=== PATIENT | female | born 1960 | race African-American/Black ===

== ENCOUNTER 2016-09-17 22:21 | Emergency (ER) | payer SELFPAY ==
[~2016-09-17] VITALS: Ht 172.7 cm; Wt 77.0 kg
[2016-09-17 23:04] LABS: BASOPHILS % 0.6 % (0.0-2.0); EOSINOPHILS % 1.2 % (0.0-5.0); HEMATOCRIT. 42.6 % (36.0-48.0); HEMOGLOBIN. 13.9 g/dL (12.0-16.0); LYMPHOCYTES % 23.8 % (20.0-50.0); MEAN CORPUSCULAR HEMOGLOBIN 29.7 pg (28.0-32.0); MEAN CORPUSCULAR HGB CONC 32.7 g/dL (31.0-37.0); MEAN CORPUSCULAR VOLUME 90.9 fL (81.0-99.0); MEAN PLATELET VOLUME 8.4 fl (7.4-10.4); MONOCYTES % 9.3 % (2.0-8.0); NEUTROPHILS % 65.1 % (40.0-76.0); PLATELET 166 x1000/uL (130-400); RED BLOOD CELL COUNT 4.69 mill/uL (4.2-5.4); RED CELL DISTRIBUTION WIDTH 14.4 % (11.6-14.6); WHITE BLOOD COUNT 5.6 x1000/uL (4.5-11.0)
[2016-09-17 23:10] LABS: PROTHROMBIN TIME 9.9 sec
[2016-09-17 23:21] LABS: ALANINE AMINOTRANSFERASE 71 IU/L (13-61); ALBUMIN 3.5 g/dL (3.4-5.0); ANION GAP 15; CALCIUM 9.3 mg/dL (8.5-10.1); CARBON DIOXIDE 22 mEq/L (21-32); CHLORIDE 114 mEq/L (98-107); ETHANOL BLOOD 146 mg/dL; INDEX HEMOLYSI 1 (1-3); INDEX ICTERIC 1 (1-4); INDEX LIPEMIC 1 (1-3); NT PRO B-TYPE NATRIURETIC PEP 162 pg/mL (5-125); TROPONIN I < 0.02 ng/mL (0.00-0.04); UREA NITROGEN BLOOD 21 mg/dL (7-21); eGFR > 60 mL/min (>60)
[2016-09-18 01:10] LABS: *AMPHETAMINES SCREEN URINE NEGATIVE (NEGATIVE); *BARBITURATES SCREEN URINE NEGATIVE (NEGATIVE); *BENZODIAZEPINES SCREEN URINE NEGATIVE (NEGATIVE); *COCAINE SCREEN URINE NEGATIVE (NEGATIVE); CANNABINOID URINE SCREEN NEGATIVE (NEGATIVE); ECSTASY MDMA SCREEN URINE NEGATIVE (NEGATIVE); METHADONE URINE SCREEN NEGATIVE (NEGATIVE); OPIATES URINE SCREEN NEGATIVE (NEGATIVE); PHENCYCLIDINE URINE SCREEN NEGATIVE (NEGATIVE)
[2016-09-18] MEDS: MAGNESIUM/ALUMINUM HYDROXIDE/SIMETHICONE 30ML UDC PO ONE (03:09)
[2016-09-18 03:36] VITALS: BP 148/96
== END 2016-09-18 04:00 | disposition home or self-care (01) ==
LOC: ER 22:21
DX: R07.89 Other chest pain (principal); Z88.8 Allergy status to other drugs, medicaments and biological substances
CPT/HCPCS: 36415; 71010; 80053; 80305; 83880; 84484; 85025; 85610; 93005; 99285; G0482

== ENCOUNTER 2017-03-27 21:20 | Emergency (ER) | payer MEDICAID, OTHER ==
[~2017-03-27] VITALS: Ht 162.6 cm; Wt 79.0 kg
[2017-03-27] MEDS ORDERED: CLONIDINE 0.2MG TABLET PO ONE (22:30)
[2017-03-27] MEDS ORDERED: NITROGLYCERIN 0.4MG TABLET SL SL PRN (22:30)
[2017-03-27 22:51] LABS: BASOPHILS % 0.6 % (0.0-2.0); EOSINOPHILS % 0.2 % (0.0-5.0); HEMOGLOBIN. 12.5 g/dL (12.0-16.0); LYMPHOCYTES % 11.6 % (20.0-50.0); MEAN CORPUSCULAR HEMOGLOBIN 29.9 pg (28.0-32.0); MEAN PLATELET VOLUME 8.2 fl (7.4-10.4); MONOCYTES % 9.3 % (2.0-8.0); NEUTROPHILS % 78.3 % (40.0-76.0); PLATELET 129 x1000/uL (130-400); RED BLOOD CELL COUNT 4.18 mill/uL (4.2-5.4); RED CELL DISTRIBUTION WIDTH 14.4 % (11.6-14.6)
[2017-03-27 22:59] LABS: INR 1.1; PARTIAL THROMBOPLASTIN TIME 23.1 sec (23.4-31.0)
[2017-03-27 23:00] LABS: CARBON DIOXIDE 28 mEq/L (21-32); CHLORIDE 106 mEq/L (98-107)
[2017-03-27 23:03] LABS: TROPONIN I 0.06 ng/mL (0.00-0.04)
[2017-03-27 23:07] LABS: D-DIMER 14.44 mg/L FEU (<0.50)
[2017-03-28] MEDS ORDERED: IOHEXOL-350 100 ML BOTTLE ONE (01:10)
[2017-03-28 02:51] VITALS: BP 140/99
== END 2017-03-28 03:23 | disposition short-term general hospital (02) ==
LOC: ER 21:20 → EDBEDREQTM 23:37 → EDBEDREQ 23:37 → CANBEDREQ 03-28 01:53 → ER 03-28 03:23
DX: I71.3 Abdominal aortic aneurysm, ruptured (principal); I71.02 Dissection of abdominal aorta; I31.2 Hemopericardium, not elsewhere classified; I10 Essential (primary) hypertension
CPT/HCPCS: 36415; 71010; 71275; 80048; 84484; 85025; 85379; 85610; 85730; 93005; 99291; Q9967; Z7610

== ENCOUNTER 2017-04-09 19:15 | Inpatient (IN) | payer OTHER ==
[~2017-04-09] VITALS: Ht 162.6 cm; Wt 81.8 kg
[2017-04-09] MEDS ORDERED: ASPIRIN 81MG TABLET PO ONE (20:30)
[2017-04-09 20:56] LABS: BASOPHILS % 0.5 % (0.0-2.0); EOSINOPHILS % 1.6 % (0.0-5.0); HEMATOCRIT. 30.3 % (36.0-48.0); HEMOGLOBIN. 9.6 g/dL (12.0-16.0); LYMPHOCYTES % 9.8 % (20.0-50.0); MEAN CORPUSCULAR HEMOGLOBIN 28.4 pg (28.0-32.0); MEAN CORPUSCULAR VOLUME 89.4 fL (81.0-99.0); MEAN PLATELET VOLUME 7.6 fl (7.4-10.4); MONOCYTES % 8.4 % (2.0-8.0); NEUTROPHILS % 79.7 % (40.0-76.0); PLATELET 200 x1000/uL (130-400); RED BLOOD CELL COUNT 3.39 mill/uL (4.2-5.4); RED CELL DISTRIBUTION WIDTH 15.3 % (11.6-14.6)
[2017-04-09 21:01] LABS: INR 1.1; PROTHROMBIN TIME 11.1 sec (9.4-11.6)
[2017-04-09 21:05] LABS: CARBON DIOXIDE 31 mEq/L (21-32); CHLORIDE 106 mEq/L (98-107); ETHANOL BLOOD < 10 mg/dL
[2017-04-09 21:13] LABS: TROPONIN I 0.26 ng/mL (0.00-0.04)
[2017-04-09 22:31] LABS: *AMPHETAMINES SCREEN URINE NEGATIVE (NEGATIVE); *BARBITURATES SCREEN URINE NEGATIVE (NEGATIVE); *BENZODIAZEPINES SCREEN URINE NEGATIVE (NEGATIVE); *COCAINE SCREEN URINE NEGATIVE (NEGATIVE); CANNABINOID URINE SCREEN NEGATIVE (NEGATIVE); METHADONE URINE SCREEN NEGATIVE (NEGATIVE); OPIATES URINE SCREEN NEGATIVE (NEGATIVE); PHENCYCLIDINE URINE SCREEN NEGATIVE (NEGATIVE)
[2017-04-09] MEDS ORDERED: IOHEXOL-350 100 ML BOTTLE ONE (22:37)
[2017-04-10] VITALS (8 sets, daily range): BP systolic 88–130; BP diastolic 52–99
[2017-04-10] MEDS ORDERED: LEVOFLOXACIN 750MG PREMIX 150 ML IV ONE
[2017-04-10] MEDS ORDERED: METO-539 PO (04:45)
[2017-04-10] MEDS ORDERED: THIA100T75 PO (04:45)
[2017-04-10] MEDS ORDERED: CHOL100044 PO (04:45)
[2017-04-10] MEDS ORDERED: IPRATROPIUM/ALBUTEROL 0.5-3(2.5)MG/3ML NEB INH PRN (04:45)
[2017-04-10] MEDS ORDERED: CLONIDINE 0.1MG TABLET PO PRN (04:45)
[2017-04-10] MEDS ORDERED: MORPHINE SULFATE 10 MG/ML CPJ IV PRN (04:45)
[2017-04-10] MEDS ORDERED: CYAN10009 PO (04:45)
[2017-04-10] MEDS ORDERED: ESCI20TA PO (04:45)
[2017-04-10] MEDS ORDERED: ONDANSETRON HCL 4MG/2ML VIAL IV PRN (04:45)
[2017-04-10] MEDS ORDERED: HYDROCODONE/ACETAMINOPHEN 10/325MG TABLET PO PRN (04:45)
[2017-04-10] MEDS ORDERED: ASPI-1159 PO (04:45)
[2017-04-10] MEDS ORDERED: MAGNESIUM/ALUMINUM HYDROXIDE/SIMETHICONE 30ML UDC PO PRN (04:45)
[2017-04-10] MEDS ORDERED: BETA10003 PO (04:45)
[2017-04-10] MEDS ORDERED: MULT-1146 PO (04:45)
[2017-04-10] MEDS ORDERED: LOSA25TA12 PO (04:45)
[2017-04-10] MEDS ORDERED: ACETAMINOPHEN 325MG TABLET PO PRN (04:45)
[2017-04-10] MEDS ORDERED: OXYC-579 PO (04:45)
[2017-04-10] MEDS ORDERED: DIPHENHYDRAMINE 50MG/ML VIAL IV PRN (04:45)
[2017-04-10] MEDS ORDERED: FOLI-43 PO (04:45)
[2017-04-10] MEDS: SODIUM CHLORIDE 0.9% INJ 3ML FLUSH IVF SCH ×2 (05:02→14:28)
[2017-04-10] MEDS ORDERED: METOPROLOL TARTRATE 25MG TABLET PO SCH (09:00)
== END 2017-04-10 18:45 | disposition home or self-care (01) | DRG 313 ==
LOC: ER 19:31 → 3WST 23:22 → EDBEDREQ 23:23 → EDBEDREQSVC 23:23 → EDBEDREQTM 23:23 → ENRESERV 04-10 01:59
PROVIDERS: ADMIT Internal Medicine; ATTEND Internal Medicine
DX: R07.89 Other chest pain (principal); I10 Essential (primary) hypertension; Z88.6 Allergy status to analgesic agent
CPT/HCPCS: 36415; 71010; 71260; 74177; 80053; 80305; 83605; 83690; 83880; 84484; 85025; 85610; 87040; 93005; 93970; 96365; 99285; G0482; J1956; J2270; J2405; Q9967

== ENCOUNTER 2021-11-13 10:37 | Emergency (ER) | payer OTHER ==
[~2021-11-13] VITALS: Ht 167.6 cm; Wt 86.0 kg
[~2021-11-13 10:37] MED LIST: ASPI-1497 PO; BETA10003 PO; CHOL100044 PO; CYAN-50 PO; ESCI20TA PO; FOLI-43 PO; LOSA25TA26 PO; METO-539 PO; MULT-1146 PO; OXYC-485 PO; THIA100T75 PO
[2021-11-13] MEDS ORDERED: IOHEXOL-350 100 ML BOTTLE ONE (13:17)
[2021-11-13 14:55] LABS: BASOPHILS % 0.7 % (0.0-2.0); EOSINOPHILS % 0.4 % (0.0-5.0); HEMOGLOBIN. 13.4 g/dL (12.0-16.0); LYMPHOCYTES % 18.8 % (20.0-50.0); MEAN CORPUSCULAR HEMOGLOBIN 28.8 pg (28.0-32.0); MEAN CORPUSCULAR VOLUME 88.2 fL (81.0-99.0); MEAN PLATELET VOLUME 8.4 fl (7.4-10.4); MONOCYTES % 9.7 % (2.0-8.0); NEUTROPHILS % 70.4 % (40.0-76.0); PLATELET 194 x1000/uL (130-400); RED BLOOD CELL COUNT 4.65 mill/uL (4.2-5.4); RED CELL DISTRIBUTION WIDTH 15.5 % (11.6-14.6)
[2021-11-13 15:01] LABS: CHLORIDE 105 mEq/L (98-107)
[2021-11-13 15:03] LABS: PARTIAL THROMBOPLASTIN TIME 28.1 sec (23.4-31.0); PROTHROMBIN TIME 10.5 sec (9.6-11.0)
[2021-11-13] MEDS ORDERED: ASPIRIN 81MG TABLET PO ONE (16:30)
[2021-11-13 22:54] VITALS: BP 140/108
== END 2021-11-13 23:40 | disposition short-term general hospital (02) ==
LOC: ER 10:37
DX: I63.22 Cerebral infarction due to unspecified occlusion or stenosis of basilar artery (principal); I72.3 Aneurysm of iliac artery; R53.1 Weakness; R47.01 Aphasia; R47.1 Dysarthria and anarthria; G51.0 Bell's palsy; R07.2 Precordial pain; I10 Essential (primary) hypertension; K80.80 Other cholelithiasis without obstruction; D25.9 Leiomyoma of uterus, unspecified; K76.89 Other specified diseases of liver; I69.351 Hemiplegia and hemiparesis following cerebral infarction affecting right dominant side; E11.9 Type 2 diabetes mellitus without complications; I25.2 Old myocardial infarction; Z88.8 Allergy status to other drugs, medicaments and biological substances; Z98.890 Other specified postprocedural states; Z79.82 Long term (current) use of aspirin; Z79.899 Other long term (current) drug therapy
CPT/HCPCS: 36415; 70450; 70496; 70498; 71275; 74174; 80053; 83605; 83880; 84484; 85025; 85610; 85730; 93005; 99291; Q9967; Z7610

== ENCOUNTER 2021-11-16 11:01 | Emergency (ER) | payer OTHER ==
[~2021-11-16] VITALS: Ht 170.2 cm; Wt 85.1 kg
[2021-11-16 12:10] LABS: BASOPHILS % 0.3 % (0.0-2.0); EOSINOPHILS % 0.2 % (0.0-5.0); HEMATOCRIT. 42.4 % (36.0-48.0); HEMOGLOBIN. 14.1 g/dL (12.0-16.0); LYMPHOCYTES % 11.7 % (20.0-50.0); MEAN CORPUSCULAR HEMOGLOBIN 29.3 pg (28.0-32.0); MEAN CORPUSCULAR VOLUME 88.4 fL (81.0-99.0); MONOCYTES % 9.2 % (2.0-8.0); NEUTROPHILS % 78.6 % (40.0-76.0); PLATELET 210 x1000/uL (130-400); RED CELL DISTRIBUTION WIDTH 15.4 % (11.6-14.6)
[2021-11-16 12:21] LABS: CHLORIDE 101 mEq/L (98-107)
[2021-11-16 12:30] LABS: ETHANOL BLOOD < 10 mg/dL
[2021-11-16] MEDS ORDERED: ASPIRIN 325MG EC TABLET PO ONE (12:30)
[2021-11-16 13:01] LABS: CLARITY URINE CLEAR (CLEAR); COLOR URINE YELLOW (YELLOW); KETONES URINE NEGATIVE (NEGATIVE); LEUKOCYTE ESTERASE URINE NEGATIVE (NEGATIVE); NITRITE URINE NEGATIVE (NEGATIVE); OCCULT BLOOD URINE NEGATIVE (NEGATIVE); PH URINE 6.5 (4.5-8.0); PROTEIN URINE NEGATIVE (NEGATIVE); UROBILINOGEN URINE 0.2 E.U./dL (0.2-1.0)
[2021-11-16] MEDS ORDERED: IOHEXOL-350 100 ML BOTTLE ONE (13:12)
[2021-11-16 13:16] LABS: *AMPHETAMINES SCREEN URINE NEGATIVE (NEGATIVE); *BARBITURATES SCREEN URINE NEGATIVE (NEGATIVE); *BENZODIAZEPINES SCREEN URINE NEGATIVE (NEGATIVE); *COCAINE SCREEN URINE NEGATIVE (NEGATIVE); CANNABINOID URINE SCREEN NEGATIVE (NEGATIVE); METHADONE URINE SCREEN NEGATIVE (NEGATIVE); OPIATES URINE SCREEN NEGATIVE (NEGATIVE); PHENCYCLIDINE URINE SCREEN NEGATIVE (NEGATIVE)
[2021-11-16 20:00] VITALS: BP 118/95
== END 2021-11-16 20:21 | disposition short-term general hospital (02) ==
LOC: ER 11:01 → EDBEDREQTM 11:13 → EDBEDREQ 11:13 → EDBEDREQSVC 12:27 → EDBEDREQTM 12:27 → EDBEDREQ 12:27 → ER 20:21 → CMPBEDREQ 11-17 01:40
DX: U07.1 COVID-19 (principal); I63.9 Cerebral infarction, unspecified; I10 Essential (primary) hypertension; E11.9 Type 2 diabetes mellitus without complications; Z88.5 Allergy status to narcotic agent; Z88.8 Allergy status to other drugs, medicaments and biological substances; Z79.899 Other long term (current) drug therapy; Z86.73 Personal history of transient ischemic attack (TIA), and cerebral infarction without residual deficits; Z98.890 Other specified postprocedural states
CPT/HCPCS: 36415; 70450; 70496; 70498; 71045; 80053; 80305; 80320; 81003; 82962; 85025; 87426; 93005; 99291; C9803; Q9967; G0480

== ENCOUNTER 2022-03-17 08:05 | Emergency (ER) | payer OTHER ==
[~2022-03-17] VITALS: Ht 172.7 cm; Wt 83.4 kg
[2022-03-17 08:28] LABS: BASOPHILS % 0.3 % (0.0-2.0); EOSINOPHILS % 4.3 % (0.0-5.0); HEMATOCRIT. 39.8 % (36.0-48.0); HEMOGLOBIN. 12.7 g/dL (12.0-16.0); LYMPHOCYTES % 31.5 % (20.0-50.0); MEAN CORPUSCULAR HEMOGLOBIN 26.9 pg (28.0-32.0); MEAN CORPUSCULAR VOLUME 84.2 fL (81.0-99.0); MONOCYTES % 10.5 % (2.0-8.0); NEUTROPHILS % 53.4 % (40.0-76.0); PLATELET 227 x1000/uL (130-400); RED BLOOD CELL COUNT 4.73 mill/uL (4.2-5.4); RED CELL DISTRIBUTION WIDTH 19.9 % (11.6-14.6)
[2022-03-17 08:29] LABS: CHLORIDE 103 mEq/L (98-107)
[2022-03-17] MEDS ORDERED: IOHEXOL-350 100 ML BOTTLE ONE (08:38)
[2022-03-17 08:50] LABS: ETHANOL BLOOD < 10 mg/dL
[2022-03-17 11:11] LABS: CLARITY URINE CLOUDY (CLEAR); COLOR URINE YELLOW (YELLOW); KETONES URINE NEGATIVE (NEGATIVE); LEUKOCYTE ESTERASE URINE 2+ (NEGATIVE); NITRITE URINE NEGATIVE (NEGATIVE); OCCULT BLOOD URINE NEGATIVE (NEGATIVE); PH URINE 7.5 (4.5-8.0); PROTEIN URINE NEGATIVE (NEGATIVE); SPECIFIC GRAVITY URINE 1.029 (1.005-1.030)
[2022-03-17] MEDS ORDERED: LABETALOL HCL VIAL 20 MG/4 ML VIAL IV ONE (11:45)
[2022-03-17 11:49] LABS: *AMPHETAMINES SCREEN URINE NEGATIVE (NEGATIVE); *BARBITURATES SCREEN URINE NEGATIVE (NEGATIVE); *BENZODIAZEPINES SCREEN URINE NEGATIVE (NEGATIVE); *COCAINE SCREEN URINE NEGATIVE (NEGATIVE); CANNABINOID URINE SCREEN NEGATIVE (NEGATIVE); METHADONE URINE SCREEN NEGATIVE (NEGATIVE); OPIATES URINE SCREEN NEGATIVE (NEGATIVE); PHENCYCLIDINE URINE SCREEN NEGATIVE (NEGATIVE)
[2022-03-17] MEDS ORDERED: ESMOLOL 2500MG PREMIX 250 ML IV ONE (12:15)
[2022-03-17] MEDS ORDERED: LABETALOL 5MG/ML SYR 20 MG/4 ML SYRINGE IV NR (12:30)
[2022-03-17] MEDS ORDERED: ESMOLOL 2500MG PREMIX 250 ML IV SCH (12:30)
[2022-03-17 13:23] VITALS: BP 145/111
== END 2022-03-17 13:59 | disposition short-term general hospital (02) ==
LOC: ER 08:05 → EDBEDREQTM 09:59 → EDBEDREQ 09:59 → EDBEDREQSVC 09:59 → CANBEDREQ 12:07 → ER 13:59
DX: I63.9 Cerebral infarction, unspecified (principal); T82.330A Leakage of aortic (bifurcation) graft (replacement), initial encounter; Y71.8 Miscellaneous cardiovascular devices associated with adverse incidents, not elsewhere classified; I10 Essential (primary) hypertension; E11.9 Type 2 diabetes mellitus without complications; Y92.018 Other place in single-family (private) house as the place of occurrence of the external cause; I69.931 Monoplegia of upper limb following unspecified cerebrovascular disease affecting right dominant side; Z20.822 Contact with and (suspected) exposure to COVID-19; Z79.899 Other long term (current) drug therapy; Z79.82 Long term (current) use of aspirin
CPT/HCPCS: 36415; 70450; 70496; 70498; 71045; 80053; 80305; 80320; 81003; 85025; 87077; 87086; 87186; 87426; 93005; 96374; 99285; C9803; J3490; Q9967; G0480

== ENCOUNTER 2023-10-25 06:57 | Emergency (ER) | payer MEDICAID, OTHER ==
[~2023-10-25] VITALS: Ht 167.6 cm; Wt 91.0 kg
[2023-10-25 07:12] VITALS: O2SAT 99
[2023-10-25 07:38] LABS: BASOPHILS % 0.5 % (0.0-2.0); EOSINOPHILS % 2.8 % (0.0-5.0); HEMATOCRIT. 35.9 % (36.0-48.0); HEMOGLOBIN. 11.4 g/dL (12.0-16.0); LYMPHOCYTES % 27.4 % (20.0-50.0); MEAN CORPUSCULAR HEMOGLOBIN 25.9 pg (28.0-32.0); MEAN CORPUSCULAR HGB CONC 31.9 g/dL (31.0-37.0); MEAN CORPUSCULAR VOLUME 81.3 fL (81.0-99.0); MEAN PLATELET VOLUME 7.8 fl (7.4-10.4); MONOCYTES % 11.2 % (2.0-8.0); NEUTROPHILS % 58.1 % (40.0-76.0); PLATELET 222 x1000/uL (130-400); RED BLOOD CELL COUNT 4.41 mill/uL (4.2-5.4); RED CELL DISTRIBUTION WIDTH 16.9 % (11.6-14.6); WHITE BLOOD COUNT 4.3 x1000/uL (4.5-11.0)
[2023-10-25 07:45] LABS: CARBON DIOXIDE 28 mEq/L (21-32); CHLORIDE 107 mEq/L (98-107); POTASSIUM 3.4 mEq/L (3.5-5.1); SODIUM 140 mEq/L (136-145)
[2023-10-25 07:46] LABS: CALCIUM 8.5 mg/dL (8.7-10.4)
[2023-10-25 07:47] LABS: PROTHROMBIN TIME 11.4 sec (9.6-11.0)
[2023-10-25 07:50] LABS: CREATININE 0.9 mg/dL (0.6-1.0)
[2023-10-25 07:51] LABS: GLUCOSE 113 mg/dL (70-105); UREA NITROGEN BLOOD 15 mg/dL (9-23)
[2023-10-25 07:52] LABS: ETHANOL BLOOD < 10 mg/dL (<10)
[2023-10-25] MEDS ORDERED: ACETAMINOPHEN 325MG TABLET PO PRN (09:30)
[2023-10-25] MEDS ORDERED: MAGNESIUM/ALUMINUM HYDROXIDE/SIMETHICONE 30ML UDC PO PRN (09:30)
[2023-10-25] MEDS ORDERED: IPRATROPIUM/ALBUTEROL 0.5-3(2.5)MG/3ML NEB HHN PRN (09:30)
[2023-10-25] MEDS ORDERED: ONDANSETRON HCL 4MG/2ML INJ IV PRN (09:30)
[2023-10-25 09:35] LABS: CLARITY URINE CLEAR (CLEAR); COLOR URINE YELLOW (YELLOW); GLUCOSE URINE NEGATIVE (NEGATIVE); KETONES URINE NEGATIVE (NEGATIVE); LEUKOCYTE ESTERASE URINE NEGATIVE (NEGATIVE); NITRITE URINE NEGATIVE (NEGATIVE); OCCULT BLOOD URINE NEGATIVE (NEGATIVE); PH URINE 5.5 (4.5-8.0); PROTEIN URINE TRACE (NEGATIVE); SPECIFIC GRAVITY URINE 1.067 (1.005-1.030)
[2023-10-25 09:42] LABS: *AMPHETAMINES SCREEN URINE NEGATIVE (NEGATIVE); *BARBITURATES SCREEN URINE NEGATIVE (NEGATIVE); *BENZODIAZEPINES SCREEN URINE NEGATIVE (NEGATIVE); *COCAINE SCREEN URINE NEGATIVE (NEGATIVE); CANNABINOID URINE SCREEN NEGATIVE (NEGATIVE); ECSTASY MDMA SCREEN URINE NEGATIVE (NEGATIVE); METHADONE URINE SCREEN NEGATIVE (NEGATIVE); OPIATES URINE SCREEN NEGATIVE (NEGATIVE); PHENCYCLIDINE URINE SCREEN NEGATIVE (NEGATIVE)
[2023-10-25 09:52] LABS: BACTERIA URINE 4+; SQUAMOUS EPITHELIAL CELL URINE 1+ /lpf (RARE/1+); WBC URINE 0-2 /hpf (0-2)
[2023-10-25 09:53] LABS: RBC URINE NONE SEEN /hpf (0-2)
[2023-10-25 10:04] LABS: ALANINE AMINOTRANSFERASE 12 IU/L (10-49); ALBUMIN 3.5 g/dL (3.2-4.8); ASPARTATE AMINOTRANSFERASE 20 IU/L (<34); BILIRUBIN DIRECT 0.1 mg/dL (<=3.0); BILIRUBIN TOTAL 0.3 mg/dL (0.1-1.0)
[2023-10-25 10:07] LABS: PROTEIN TOTAL 5.5 g/dL (6.0-8.3)
[2023-10-25] MEDS: PANTOPRAZOLE SODIUM 40 MG/VIAL IV SCH (10:13)
[2023-10-25] MEDS: DEXT 5%/0.45% NACL 1000ML 1,000 ML IV SCH (10:13)
[2023-10-25 10:56] VITALS: BP 146/94; PULSE 82; RESP 14; TEMP 98.6
== END 2023-10-25 11:09 | disposition short-term general hospital (02) ==
LOC: ER 07:16 → CANBEDREQ 10:59 → ER 11:09
DX: I63.89 Other cerebral infarction (principal); E11.9 Type 2 diabetes mellitus without complications; I11.9 Hypertensive heart disease without heart failure; I25.2 Old myocardial infarction; Z88.6 Allergy status to analgesic agent; Z88.5 Allergy status to narcotic agent; Z88.8 Allergy status to other drugs, medicaments and biological substances
CPT/HCPCS: 80076; 80305; 80048; 81003; 80320; 83690; 85025; 85379; 85610; 36415; 71045; 70496; 70498; 70450; 93005; 96365; 99285; C9113; G0480